=== PATIENT | female | born 1940 | race Caucasian/White ===

== ENCOUNTER 2017-11-04 20:14 | Emergency (ER) | payer MEDICARE, OTHER ==
[2017-11-04] MEDS ORDERED: Diphtheria,Pertussis(Acell),Tetanus Vaccine 0.5 ML Syringe IM ONE (20:50)
[2017-11-04] MEDS ORDERED: Lidocaine/EPINEPHrine/Tetracaine Soln 1 ML TOP ONE (20:51)
--- NOTE | 2017-11-04 20:58 | EDM.PDOC ---
ED HPI GENERAL MEDICAL PROBLEM - General Chief Complaint: Bite:Animal, Insect Stated Complaint: DOG BITE ON RT ARM Time Seen by Provider: 11/04/17 20:52 Source of Information: Reports: Patient, Family History Limitations: Reports: No Limitations - History of Present Illness INITIAL COMMENTS - FREE TEXT/NARRATIVE: HISTORY AND PHYSICAL: []77-year-old female presenting with a dog bite to her right upper forearm History of Present Illness: []Patient was at her neighbor's house and there was lots of company of the dog that she knows was running around the house and excited and she went down to see it when the dog bit her in the arm. She states the dog is up-to-date on vaccines She does not recall when her last tetanus vaccine was given Review of Systems: As per history of present illness and below otherwise all systems reviewed and negative. Past medical history: As per history of present illness and as reviewed below otherwise noncontributory. Surgical history: As per history of present illness and as reviewed below otherwise noncontributory. Social history: No reported history of drug or alcohol abuse. Family history: As per history of present illness and as reviewed below otherwise noncontributory. Physical exam: Alert and oriented female answering questions appropriately in full sentences without any shortness of breath she is nontoxic in appearance HEENT: Atraumatic, normocehpalic, pupils reactive, negative for conjunctival pallor or scleral icterus, mucous membranes moist, throat clear, neck supple, nontender, trachea midline. Lungs: Clear to auscultation, breath sounds equal bilaterally, chest non tender. Heart: S1S2, regular, negative for clicks, rubs, or JVD. Abdomen: Soft, nondistended, nontender. Negative for masses or hepatossplenmegaly. Negative for costovertebral tenderness. Pelvis: Stable nontender. Genitourinary: Deferred. Rectal: Deferred Extremities: Dog bite to right forearm proximal to the elbow.No Active bleeding at this time. negative for cords or calf pain. Neurovascular unremarkable. Neuro: Awake, alert, oriented. Cranial nerves II through XII unremarkable. Cerebellum unremarkable. Motor and sensory unremarkable throughout. Exam nonfocal. Police will be notified of event. After let gel was applied then lidocaine 1% with epinephrine was ejected into the wound divide adequate anesthesia Patient tolerated the procedures well. 8 sutures were placed were noted between sutures to allow for any drainage due to the nature of this laceration being a dog bite. Diagnostics: [] Therapeutics: []Let gel solution 1 Percent lidocaine with epi Impression: [].Dog Bite with repair Plan: []Discharge home augmentin 875 bid for 7 days Follow up with wound evaluation tuesday or tuesday next wek sutures out in 10 days Definitive disposition and diagnosis as appropriate pending reevaluation and review of above. Onset: Today, Sudden Duration: Minutes: Location: Reports: Upper Extremity, Right Quality: Reports: Throbbing Severity: Moderate Improves with: Reports: None Worsens with: Reports: None Right Upper Arm Pain Score (Numeric/FACES): 6 - Related Data Allergies Allergy/AdvReac Type Severity Reaction Status Date / Time omeprazole Allergy Rash Verified 07/05/17 08:48 Home Meds: Home Meds Amoxicillin/Potassium Clav [Augmentin 875-125 Tablet] 1 each PO BID #14 tablet 11/04/17 [Rx] ED ROS GENERAL - Review of Systems Review Of Systems: ROS reveals no pertinent complaints other than HPI. ED EXAM, ANIMAL BITE - Physical Exam Exam: See Below (see dictation) ED ANIMAL BITE PROCEDURES - Laceration/Wound Repair Right Anterior Arm Lac/Wound Length In cm: 7 Appearance: Muscle, Mildly Contaminated Distal NVT: Neuro & Vascular Intact, No Tendon Injury Anesthetic Type: Local Local Anesthesia - Lidocaine (Xylocaine): 1% with EPI Local Anesthetic Volume: Other (8) Skin Prep: Chlorhexidine (Hibiciens) Exploration/Debridement/Repair: Wound Explored, In a Bloodless Field, Explored to Base, Minimal Debridement # of Sutures: 8 Suture Type: Nylon, Interrupted, Simple Drain Placement: No Sterile Dressing Applied: Nurse Tetanus Status Addressed: Yes Complications: No Course - Orders/Labs/Meds Orders: Active Orders 24 hr Category Date Time Status Vaccines to be Administered [RC] PER UNIT ROUTINE Care 11/04/17 20:50 Active Meds: Medications Discontinued Medications Generic Name Dose Route Start Last Admin Trade Name Freq PRN Reason Stop Dose Admin Diphtheria/Tetanus/Acell Pertussis 0.5 ml 11/04/17 20:50 11/04/17 21:26 Adacel IM 11/04/17 20:51 0.5 ml .ONCE ONE Administration Lidocaine HCl 10 ml 11/04/17 21:06 Xylocaine 1% INJECT 11/04/17 21:07 ONETIME ONE Lidocaine/Epinephrine 20 ml 11/04/17 21:09 11/04/17 21:13 Xylocaine 1% With Epinephrine 1:100,000 INJECT 11/04/17 21:10 20 ml ONETIME ONE Administration Lidocaine/Epinephrine Confirm 11/04/17 21:10 Xylocaine 1% With Epinephrine 1:100,000 Administered 11/04/17 21:11 Dose 20 ml .ROUTE .STK-MED ONE Lidocaine/Tetracaine 2 ml 11/04/17 20:51 11/04/17 21:03 Let Soln TOP 11/04/17 20:52 2 ml ONETIME ONE Administration Departure - Departure Time of Disposition: 21:48 Disposition: Home, Self-Care 01 Condition: Good Clinical Impression: Dog bite of arm Qualifiers: Encounter type: initial encounter Laterality: right Qualified Code(s): S41.151A - Open bite of right upper arm, initial encounter; W54.0XXA - Bitten by dog, initial encounter - Discharge Information Prescriptions: Amoxicillin/Potassium Clav [Augmentin 875-125 Tablet] 1 each PO BID #14 tablet Instructions: Animal Bite, [id number] Referrals: PCP,None [Primary Care Provider] - Forms: ED Department Discharge Additional Instructions: The following information is given to patients seen in the emergency department who are being discharged to home. This information is to outline your options for follow-up care. We provide all patients seen in our emergency department with a follow-up referral. The need for follow-up, as well as the timing and circumstances, are variable depending upon the specifics of your emergency department visit. If you don't have a primary care physician on staff, we will provide you with a referral. We always advise you to contact your personal physician following an emergency department visit to inform them of the circumstance of the visit and for follow-up with them and/or the need for any referrals to a consulting specialist. The emergency department will also refer you to a specialist when appropriate. This referral assures that you have the opportunity for followup care with a specialist. All of these measure are taken in an effort to provide you with optimal care, which includes your followup. Under all circumstances we always encourage you to contact your private physician who remains a resource for coordinating your care. When calling for followup care, please make the office aware that this follow-up is from your recent emergency room visit. If for any reason you are refused follow-up, please contact the [facility] emergency department at and asked to speak to the emergency department charge nurse. Return for suture wound evaluation Tuesday or Tuesday next week Sutures out in 10 days You were given Augmentin while in the emergency department Prescription for Augmentin was electronically sent to service drug Any difficulties with this arm including infection heat to the material return for reevaluation - My Orders Last 24 Hours: My Active Orders 11/04/17 20:50 Vaccines to be Administered [RC] PER UNIT ROUTINE - Assessment/Plan Last 24 Hours: My Active Orders 11/04/17 20:50 Vaccines to be Administered [RC] PER UNIT ROUTINE
[2017-11-04] MEDS ORDERED: Lidocaine 1% 10 ML MDV INJECT ONE (21:06)
[2017-11-04] MEDS ORDERED: Lidocaine 1% with EPINEPHrine 1:100,000 20 ML MDV INJECT ONE (21:09)
[2017-11-04] MEDS ORDERED: Lidocaine 1% with EPINEPHrine 1:100,000 20 ML MDV ONE (21:10)
[2017-11-04] MEDS ORDERED: Bacitracin Oint 1 GM U/D Packet ONE (21:37)
[2017-11-04] MEDS ORDERED: Amoxicillin/Clavulanate K 875-125 MG Tab PO ONE (21:47)
== END 2017-11-04 22:13 | disposition home or self-care (01) ==
LOC: MW.ED 20:14
DX: S51.851A Open bite of right forearm, initial encounter (principal); Z88.8 Allergy status to other drugs, medicaments and biological substances; Z23 Encounter for immunization; W54.0XXA Bitten by dog, initial encounter
CPT/HCPCS: 12002; 90471; 90715; 99283; A9270

== ENCOUNTER 2017-11-07 10:49 | Emergency (ER) | payer MEDICARE, OTHER ==
--- NOTE | 2017-11-07 11:11 | EDM.PDOC ---
ED HPI GENERAL MEDICAL PROBLEM - General Stated Complaint: WOUND CHECK Time Seen by Provider: 11/07/17 11:09 Source of Information: Reports: Patient History Limitations: Reports: No Limitations - History of Present Illness INITIAL COMMENTS - FREE TEXT/NARRATIVE: HISTORY AND PHYSICAL: History of present illness: Patient is a 77-year-old female who presents to the emergency room today for a wound reevaluation. Patient was seen in our emergency room on 11/04/2017 after being bitten by a dog to the right forearm. At this time she did have #8 sutures placed to ask me if the area, was placed on Augmentin. A dressing was placed on this site and was encouraged to come for reevaluation on 11/07 or . She has not yet since he moved the bandage or evaluated this site. She states that she has been taking her antibiotics as directed and has not had any pain or fevers while at home. Other than being here for the recommended wound reevaluation she has no other complaints or concerns at this time. Review of systems: As per history of present illness and below otherwise all systems reviewed and negative. Past medical history: As per history of present illness and as reviewed below otherwise noncontributory. Surgical history: As per history of present illness and as reviewed below otherwise noncontributory. Social history: No reported history of drug or alcohol abuse. Family history: As per history of present illness and as reviewed below otherwise noncontributory. Physical exam: General: Well-developed and well-nourished 77-year-old female. Alert and oriented. Nontoxic appearing and in no acute distress. HEENT: Atraumatic, normocephalic, pupils equal and reactive bilaterally, negative for conjunctival pallor or scleral icterus, mucous membranes moist, throat clear, neck supple, nontender, trachea midline. No drooling or trismus noted. No meningeal signs Lungs: Clear to auscultation, breath sounds equal bilaterally, chest nontender. Heart: S1S2, regular rate and rhythm without overt murmur Abdomen: Soft, nondistended, nontender. Negative for masses or hepatosplenomegaly. Negative for costovertebral tenderness. Pelvis: Stable nontender. Genitourinary: Deferred. Rectal: Deferred. Skin: There is a well approximated laceration noted to the proximal surface of the right forearm. The skin surrounding the area does appear erythematous and tender to palpation. The area is not hot to the touch. Margin was created with surgical marker for reevaluation. Other skin is Intact, warm, dry. No lesions or rashes noted. Extremities: Moves all extremities per self without difficulty or deficits. Neurovascular unremarkable. Neuro: Awake, alert, oriented. Cranial nerves II through XII unremarkable. Cerebellum unremarkable. Motor and sensory unremarkable throughout. Exam nonfocal. Notes: I did discuss with the patient in great detail that she needs to monitor this area closely. She does have an increased risk of cellulitis as this is a closed animal bite. She states that she believes the redness is due to the dressing being placed on and was "tight". We discussed signs and symptoms such as but not limited to: Increased redness, increased swelling, increased pain and fever/ chills. Having any fevers since the animal bite. She denies any pain at this time. Declines wanting further observation of this site and states she will monitor the site closely and will return to the emergency room tomorrow. I did have Dr New look at this site, in case she sees this patient tomorrow for re- evaluation. Patient is aware that if the site does not improve or does appear that it was worsening she may need to be admitted for IV antibiotics. He patient discharged to home with thorough education and a light dressing over the suture area. Further questions or concerns at this time. Diagnostics: N/A Therapeutics: Wound Care Impression: Animal Bite Plan: 1. Please keep the area clean and dry. 2. As we discussed please monitor the site for signs of improvement or worsening include but are not limited to fever, increased pain, increased drainage, increased redness and swelling. A margin has been drawn to assess if the site is getting larger or smaller. 3. You may use Tylenol and/or ibuprofen as needed. 4. Follow-up with Dr. Robison within the next 1-2 days. Return to the ED as needed and as we discussed. Definitive disposition and diagnosis as appropriate pending reevaluation and review of above. right arm Pain Score (Numeric/FACES): 1 - Related Data Allergies Allergy/AdvReac Type Severity Reaction Status Date / Time omeprazole Allergy Rash Verified 11/07/17 10:59 Home Meds: Home Meds Amoxicillin/Potassium Clav [Augmentin 875-125 Tablet] 1 each PO BID #14 tablet 11/04/17 [Rx] Citalopram [Citalopram HBr] 20 mg PO DAILY 11/07/17 [History] Lisinopril 20 mg PO DAILY 11/07/17 [History] Simvastatin 1 tab PO DAILY 11/07/17 [History] Past Medical History - Past Health History Medical/Surgical History: Denies Medical/Surgical History HEENT History: Reports: Impaired Vision Cardiovascular History: Reports: High Cholesterol, Hypertension Respiratory History: Reports: None Gastrointestinal History: Reports: None Genitourinary History: Reports: Other (See Below) Other Genitourinary History: stage three kidney disease DIRECTOR INPATIENT [employer] History: Reports: None Musculoskeletal History: Reports: None Neurological History: Reports: None Psychiatric History: Reports: Depression Endocrine/Metabolic History: Reports: None Hematologic History: Reports: None Immunologic History: Reports: None Oncologic (Cancer) History: Reports: None Dermatologic History: Reports: None - Infectious Disease History Infectious Disease History: Reports: Chicken Pox, Measles - Past Surgical History Head Surgeries/Procedures: Reports: None HEENT Surgical History: Reports: None Cardiovascular Surgical History: Reports: None Respiratory Surgical History: Reports: None GI Surgical History: Reports: None Female Surgical History: Reports: None Endocrine Surgical History: Reports: None Neurological Surgical History: Reports: None Musculoskeletal Surgical History: Reports: None Oncologic Surgical History: Reports: None Dermatological Surgical History: Reports: None Social & Family History - Family History Family Medical History: Noncontributory - Tobacco Use Smoking Status *Q: Never Smoker Second Hand Smoke Exposure: No - Caffeine Use Caffeine Use: Reports: Coffee - Recreational Drug Use Recreational Drug Use: No ED ROS GENERAL - Review of Systems Review Of Systems: ROS reveals no pertinent complaints other than HPI. ED EXAM, SKIN/RASH Exam: See Below (See dictation) Course - Vital Signs Last Recorded V/S: Last Vital Signs Temp 97.4 F 11/07/17 10:57 Pulse 83 11/07/17 10:57 Resp 18 11/07/17 10:57 BP 130/67 11/07/17 10:57 Pulse Ox 96 11/07/17 10:57 - Orders/Labs/Meds Orders: Active Orders 24 hr Category Date Time Status DME for Discharge [COMM] Stat Oth 11/07/17 11:11 Ordered Departure - Departure Time of Disposition: 11:11 Disposition: Home, Self-Care 01 Clinical Impression: Dog bite Qualifiers: Encounter type: subsequent encounter Qualified Code(s): W54.0XXD - Bitten by dog, subsequent encounter - Discharge Information Instructions: Animal Bite, [id number] Referrals: PCP,None [Primary Care Provider] - Forms: ED Department Discharge Additional Instructions: The following information is given to patients seen in the emergency department who are being discharged to home. This information is to outline your options for follow-up care. We provide all patients seen in our emergency department with a follow-up referral. The need for follow-up, as well as the timing and circumstances, are variable depending upon the specifics of your emergency department visit. If you don't have a primary care physician on staff, we will provide you with a referral. We always advise you to contact your personal physician following an emergency department visit to inform them of the circumstance of the visit and for follow-up with them and/or the need for any referrals to a consulting specialist. The emergency department will also refer you to a specialist when appropriate. This referral assures that you have the opportunity for follow-up care with a specialist. All of these measure are taken in an effort to provide you with optimal care, which includes your follow-up. Under all circumstances we always encourage you to contact your private physician who remains a resource for coordinating your care. When calling for follow-up care, please make the office aware that this follow-up is from your recent emergency room visit. If for any reason you are refused follow-up, please contact the [facility] Emergency Department at and asked to speak to the emergency department charge nurse. [facility] [address] [place] [address] [id number] [address] [address] 1. Please keep the area clean and dry. 2. As we discussed please monitor the site for signs of improvement or worsening include but are not limited to fever, increased pain, increased redness and swelling. A margin has been drawn to assess if the site is getting larger or smaller. 3. You may use Tylenol and/or ibuprofen as needed. 4. Follow-up with Dr. Robison within the next 1-2 days. Return to the ED as needed and as we discussed. - My Orders Last 24 Hours: My Active Orders 11/07/17 11:11 DME for Discharge [COMM] Stat - Assessment/Plan Last 24 Hours: My Active Orders 11/07/17 11:11 DME for Discharge [COMM] Stat
== END 2017-11-07 11:24 | disposition home or self-care (01) ==
LOC: MW.ED 10:49
DX: S51.851D Open bite of right forearm, subsequent encounter (principal); W54.0XXD Bitten by dog, subsequent encounter; I12.9 Hypertensive chronic kidney disease with stage 1 through stage 4 chronic kidney disease, or unspecified chronic kidney disease; N18.3 Chronic kidney disease, stage 3 (moderate); E78.00 Pure hypercholesterolemia, unspecified; Z79.899 Other long term (current) drug therapy; Z88.8 Allergy status to other drugs, medicaments and biological substances
CPT/HCPCS: 99282

== ENCOUNTER 2017-11-14 11:00 | Emergency (ER) | payer MEDICARE, OTHER | END 2017-11-14 11:23 | disposition home or self-care (01) | LOC: MW.ED 11:00 | DX: Z53.21 Procedure and treatment not carried out due to patient leaving prior to being seen by health care provider (principal) ==